=== PATIENT | male | born 1975 | race Caucasian/White ===

== ENCOUNTER 2019-06-23 16:21 | Outpatient (REF) | payer OTHER, SELFPAY ==
[2019-06-23 22:20] LABS: Calculated LDL 115 mg/dL (<100); Cholesterol 197 mg/dL (<200); HDL Cholesterol 72 mg/dL (40-60); Triglyceride 53 mg/dL (<150)
== END 2019-06-23 16:41 ==
LOC: NCHCN 16:21
PROVIDERS: PCP Nurse Practitioner Community Health; Visit Provider Nurse Practitioner Community Health
DX: Z13.220 Encounter for screening for lipoid disorders (principal)
CPT/HCPCS: 80061

== ENCOUNTER 2021-10-26 17:41 | Outpatient (REF) | payer OTHER, SELFPAY ==
[2021-10-26 22:26] LABS: Anion Gap 5.8 mmol/L (3-11); BUN 26 mg/dL (7-18); CO2 29.2 mmol/L (21.0-32.0); CREATININE 0.8 mg/dL (0.70-1.30); Calcium 9.2 mg/dL (8.5-10.1); Calculated LDL 133 mg/dL (<100); Chloride 102 mmol/L (98-107); Cholesterol 227 mg/dL (<200); Glucose 104 mg/dL (74-106); HDL Cholesterol 79 mg/dL (40-60); Potassium 3.7 mmol/L (3.5-5.1); Sodium 137 mmol/L (136-145); Triglyceride 79 mg/dL (<150)
[2021-10-28 09:47] LABS: HIV-1/2 Ag & Ab Screen Negative (Negative)
[2021-10-28 09:49] LABS: Hepatitis C Ab w Rflx HCV PCR Negative (Negative)
== END 2021-10-26 17:42 | disposition home or self-care (01) ==
LOC: NCHCN 17:41
PROVIDERS: PCP Nurse Practitioner Community Health; Visit Provider Nurse Practitioner Family
DX: Z00.00 Encounter for general adult medical examination without abnormal findings (principal); Z13.220 Encounter for screening for lipoid disorders; Z11.4 Encounter for screening for human immunodeficiency virus [HIV]; Z11.59 Encounter for screening for other viral diseases
CPT/HCPCS: 80048; 80061; 86803; 87389

== ENCOUNTER 2024-01-08 19:47 | Outpatient (REF) | payer OTHER, SELFPAY ==
--- NOTE | 2024-01-08 14:00 | SKI_PTH ---
PATIENT: Liang [place] LOC: [facility] U#:[id number] AGE/SX: 48/M ROOM: RE01/08/[address]: Marina Weathers : 1975 BED: DIS: 01/08/2024 SPEC #: [id number] RECD: 01/09/24 12:37 STATUS: SHEMAR RENaheed #: [id number] ANSLEY: 01/08/24 14:[address]: Marina Weathers DEPT: Surgical Specimen RECD BY: Sheila Franco ENTERED: 01/09/24 12:38 SP TYPE: CLEMENTE BROOKS DR: Bella Porter Tissues: 1 - SKIN BIOPSY(SHAVE/PUNCH) Procedures: IMMUNOPEROXIDASE STAIN SKIN LEVEL 4 Comments: [id number]
[2024-01-08 21:25] LABS: Abs Immature Grans 0.01 10^3/uL (0.0-0.06); Absolute Basophil Count 0.05 10^3/uL (0.0-0.2); Absolute Eosinophil Count 0.06 10^3/uL (0.0-0.7); Absolute Lymphocyte Count 2.55 10^3/uL (1.2-3.4); Absolute Monocyte Count 0.33 10^3/uL (0.1-0.8); Absolute Neutrophil Count 4.68 10^3/uL (1.2-6.7); Basophils % 0.7 %; Eosinophils % 0.8 %; HCT 36.6 % (40.0-50.0); HGB 11.9 g/dL (13.5-17.5); Immature Grans % 0.1 %; Lymphocytes % 33.2 %; MCH 27.2 pg (27.0-33.0); MCHC 32.5 % (32.0-36.0); MCV 84 fL (80-95); MPV 11.2 fL (8.0-11.0); Monocytes % 4.3 %; Neutrophils % 60.9 %; Platelet Count 241 10^3/uL (130-400); RBC 4.38 10^6/uL (4.36-5.78); RDW 15.6 % (11.8-14.1); RDW-SD 47.4 fL; WBC 7.68 10^3/uL (4.4-10.8)
[2024-01-08 21:59] LABS: ALT 28 U/L (16-63); AST 33 U/L (15-37); Albumin 3.9 g/dL (3.4-5.0); Alkaline Phosphatase 63 U/L (46-116); Anion Gap 6.7 mmol/L (3-11); BUN 15 mg/dL (7-18); Bilirubin, Total 0.37 mg/dL (0.2-1.0); CO2 29.3 mmol/L (21.0-32.0); CREATININE 0.8 mg/dL (0.70-1.30); Calcium 9.1 mg/dL (8.5-10.1); Calculated LDL 101 mg/dL (<100); Chloride 105 mmol/L (98-107); Cholesterol 196 mg/dL (<200); Estimated GFR 108.49 (mL/min/1.73m2); Ferritin 10 ng/mL (26-388); Glucose 96 mg/dL (74-106); HDL Cholesterol 80 mg/dL (40-60); Potassium 3.7 mmol/L (3.5-5.1); Sodium 141 mmol/L (136-145); Total Protein 7.2 g/dL (6.4-8.2); Triglyceride 76 mg/dL (<150)
[2024-01-09 16:31] LABS: TSH (W/Ref FT4) 1.26 uIU/mL (0.36-3.74)
[2024-01-09 17:08] LABS: Vitamin B12 731 pg/mL (193-986)
[2024-01-09 18:34] LABS: PSA, Screening 0.5 ng/mL (<=2.5)
== END 2024-01-08 19:48 | disposition home or self-care (01) ==
LOC: NCHCN 19:47
PROVIDERS: PCP Nurse Practitioner Community Health; Visit Provider Nurse Practitioner Family
DX: D64.9 Anemia, unspecified (principal); Z12.5 Encounter for screening for malignant neoplasm of prostate; Z13.220 Encounter for screening for lipoid disorders
CPT/HCPCS: 80053; 80061; 84153; 82607; 82728; 82746; 84443; 85025; 85045; 88305; 88361

== ENCOUNTER 2024-01-21 20:41 | Outpatient (REF) | payer OTHER, SELFPAY ==
[2024-01-21 21:57] LABS: ESR 2 mm/hr (0-15)
[2024-01-21 21:58] LABS: Reticulocyte 1.3 % (0.5-2.4)
[2024-01-21 22:15] LABS: C-Reactive Protein < 0.50 mg/dL (<or=0.5)
[2024-01-21 22:17] LABS: Iron 112 ug/dL (65-175); Total Iron Binding Capacity 372 ug/dL (250-450); Transferrin Sat 30 % (20-55)
[2024-01-21 22:54] LABS: Folate 19.2 ng/mL (8.6-20.0)
[2024-01-23 17:17] LABS: IgA 160 mg/dL (85-499); Interpretation (See Note); Tissue Transglutaminase IgA <4.0 CU (<20.0)
== END 2024-01-21 20:42 | disposition home or self-care (01) ==
LOC: NCHCN 20:41
PROVIDERS: PCP Nurse Practitioner Community Health; Visit Provider Nurse Practitioner Family
DX: D64.9 Anemia, unspecified (principal); Z12.5 Encounter for screening for malignant neoplasm of prostate; Z13.220 Encounter for screening for lipoid disorders; D48.5 Neoplasm of uncertain behavior of skin; D22.5 Melanocytic nevi of trunk
CPT/HCPCS: 82784; 83516; 85652; 82746; 83540; 83550; 85045; 86140

== ENCOUNTER 2024-04-09 13:34 | Outpatient (REF) | payer OTHER, SELFPAY ==
[2024-04-09 21:58] LABS: HCT 43.1 % (40.0-50.0); HGB 14.5 g/dL (13.5-17.5); MCH 29.4 pg (27.0-33.0); MCHC 33.6 % (32.0-36.0); MCV 87 fL (80-95); MPV 11.1 fL (8.0-11.0); Platelet Count 238 10^3/uL (130-400); RBC 4.93 10^6/uL (4.36-5.78); RDW 14.7 % (11.8-14.1); RDW-SD 47.5 fL; WBC 6.23 10^3/uL (4.4-10.8)
[2024-04-09 22:33] LABS: Ferritin 33 ng/mL (26-388)
== END 2024-04-09 13:35 | disposition home or self-care (01) ==
LOC: NCHCN 13:34
PROVIDERS: PCP Nurse Practitioner Community Health; Visit Provider Nurse Practitioner Family
DX: D64.9 Anemia, unspecified (principal)
CPT/HCPCS: 85027; 82728

== ENCOUNTER 2025-01-21 18:28 | Outpatient (REF) | payer BC, SELFPAY ==
[2025-01-21 21:33] LABS: HCT 44.4 % (40.0-50.0); HGB 14.9 g/dL (13.5-17.5); MCH 30.6 pg (27.0-33.0); MCHC 33.6 % (32.0-36.0); MCV 91 fL (80-95); MPV 10.4 fL (8.0-11.0); Platelet Count 269 10^3/uL (130-400); RBC 4.87 10^6/uL (4.36-5.78); RDW 12.9 % (11.8-14.1); RDW-SD 42.9 fL; WBC 6.93 10^3/uL (4.4-10.8)
[2025-01-21 22:04] LABS: Ferritin 57 ng/mL (26-388)
[2025-01-22 18:33] LABS: PSA, Screening 0.6 ng/mL (<=3.5)
== END 2025-01-21 18:29 | disposition home or self-care (01) ==
LOC: NCHCN 18:28
PROVIDERS: PCP Nurse Practitioner Community Health; Visit Provider Nurse Practitioner Family
DX: Z12.5 Encounter for screening for malignant neoplasm of prostate (principal); D64.9 Anemia, unspecified
CPT/HCPCS: 84153; 85027; 82728